=== PATIENT | female | born 1990 | race Caucasian/White ===

== ENCOUNTER 2016-04-11 06:18 | Emergency (ER) | payer OTHER ==
[~2016-04-11] VITALS: Ht 157.5 cm; Wt 91.7 kg
[~2016-04-11 06:18] MED LIST: DPPI150 IM; LORA10TA6 PO
[2016-04-11 06:25] VITALS: TEMP 37.1; Ht 157.5 cm; Wt 91.7 kg
[2016-04-11] MEDS ORDERED: ONDANSETRON INJ 2 MG/ML 2 ML VIAL IV STA (06:50)
[2016-04-11] MEDS ORDERED: SODIUM CHLORIDE 0.9% 1000ML 2,000 ML IV STA (06:50)
[2016-04-11 07:30] LABS: BASO % 0.1 %; BASO ABS # 0.01 K/uL (0-0.2); COMPLETE YES; EOS % 0.3 %; HEMATOCRIT 40.5 % (37-47); IG% 0.3 %; LYMPH % 5.8 %; LYMPH ABS # 0.46 K/uL (1.2-3.4); MEAN CELL VOLUME 82.2 fL (80-100); MEAN CORPUSCULAR HEMOGLOBIN 29.2 pg (25-34); MEAN CORPUSCULAR HGB CONC 35.6 g/dl (32-36); MEAN PLATELET VOLUME 9.5 fL (7.4-10.4); MONO % 1.8 %; NEUT % 91.7 %; PLATELET COUNT 224 K/uL (130-400); RED BLOOD COUNT 4.93 M/uL (4.2-5.4); WHITE BLOOD COUNT 7.95 K/uL (4.8-10.8)
[2016-04-11 07:49] LABS: CALCIUM 8.5 mg/dl (8.5-10.1); CREATININE 0.76 mg/dl (0.60-1.20); POTASSIUM 3.9 mmol/L (3.5-5.1)
[2016-04-11] MEDS ORDERED: ONDA4TAB10 SL (08:02)
--- NOTE | 2016-04-11 08:03 | EMERGENCY ROOM VISIT NOTE ---
History Report prepared by Devan: Katherin Barrera Under the Supervision of: Dr. Florentino Fan D.O. First contact with patient: 06:48 Chief Complaint: VOMITING Stated Complaint: THROWING UP,NAUSEA,CAN'T KEEP ANYTHING DOWN Nursing Triage Summary: c/o n/v during the night . History of Present Illness The patient is a 25 year old female who presents to the Emergency Room with complaints of multiple episodes of vomiting since last evening. Currently, the she is feeling nauseous, and she rates her discomfort as a 7/10. Since the time of onset, the patient has vomited approximately 10 times, and she has not been able to keep any food or liquids down without bringing them back up. She has also passed 3 movements of watery diarrhea. She now notes generalized cramping abdominal pain which she attributes to vomiting. The patient denies feeling ill prior to the time of onset last evening, and she denies fevers, chills, headache , chest pain, shortness of breath, cough, hematochezia, melena, urinary symptoms or swelling to her legs. Patient does note that she has been around her mother who is ill with similar symptoms. Source of History: patient Onset: last evening Position: abdomen Symptom Intensity: 7/10 Quality: other (vomiting) Modifying Factors (Worsening): eating, drinking Associated Symptoms: + abdominal pain, + diarrhea, + nausea, + vomiting, No SOB, No chest pain, No chills, No fevers, No hematochezia, No melena, No urinary symptoms Review of Systems See HPI for pertinent positives & negatives. A total of 10 systems reviewed and were otherwise negative. Past Medical & Surgical Medical Problems: (1) ADHD (attention deficit hyperactivity disorder) (2) Anxiety (3) Tachycardia (4) Tachycardia Family History No pertinent family history Social History Smoking Status: Never Smoker Alcohol Use: none Drug Use: none Housing Status: other Occupation Status: unemployed Current/Historical Medications Scheduled Loratadine (Claritin), 10 MG PO DAILY Medroxyprogesterone Acetate (Medroxyprogesterone Aceta), 150 MG IM UD Ondasetron Odt (Zofran Odt), 4 MG SL Q6H Allergies Coded Allergies: No Known Allergies (Unverified , 04/11/16) Physical Exam Vital Signs Date Time Temp Pulse Resp B/P Pulse Ox O2 Delivery O2 Flow Rate FiO2 04/11/16 06:25 37.1 104 18 107/62 99 Room Air Physical Exam CONSTITUTIONAL/VITAL SIGNS: Reviewed / noted above. GENERAL: Non-toxic in appearance. INTEGUMENTARY: Warm, dry, and [place]. HEAD: Normocephalic. EYES: without scleral icterus or trauma. ENT/OROPHARYNX: clear and moist. LYMPHADENOPATHY/NECK: Is supple without lymphadenopathy or meningismus. RESPIRATORY: Lungs clear and equal. CARDIOVASCULAR: Regular rate and rhythm. GI/ABDOMEN: Soft and nontender. No organomegaly or pulsatile mass. No rebound or guarding. Normal bowel sounds. EXTREMITIES: Warm and well perfused. BACK: No CVA tenderness. NEUROLOGICAL: Intact without focal deficits. PSYCHIATRIC: normal affect. MUSCULOSKELETAL: Normally developed with good muscle tone. Medical Decision & Procedures Laboratory Results 04/11/16 07:10 Red Blood Count 4.93, Mean Corpuscular Volume 82.2, Mean Corpuscular Hemoglobin 29.2, Mean Corpuscular Hemoglobin Concent 35.6, Mean Platelet Volume 9.5, Neutrophils (%) (Auto) 91.7, Lymphocytes (%) (Auto) 5.8, Monocytes (%) (Auto) 1.8, Eosinophils (%) (Auto) 0.3, Basophils (%) (Auto) 0.1, Neutrophils # (Auto) 7.30, Lymphocytes # (Auto) 0.46, Monocytes # (Auto) 0.14, Eosinophils # (Auto) 0.02, Basophils # (Auto) 0.01 04/11/16 07:10 Test 04/11/16 07:10 White Blood Count 7.95 K/uL (4.8-10.8) Red Blood Count 4.93 M/uL (4.2-5.4) Hemoglobin 14.4 g/dL (12.0-16.0) Hematocrit 40.5 % (37-47) Mean Corpuscular Volume 82.2 fL (80-100) Mean Corpuscular Hemoglobin 29.2 pg (25-34) Mean Corpuscular Hemoglobin Concent 35.6 g/dl (32-36) Platelet Count 224 K/uL (130-400) Mean Platelet Volume 9.5 fL (7.4-10.4) Neutrophils (%) (Auto) 91.7 % Lymphocytes (%) (Auto) 5.8 % Monocytes (%) (Auto) 1.8 % Eosinophils (%) (Auto) 0.3 % Basophils (%) (Auto) 0.1 % Neutrophils # (Auto) 7.30 K/uL (1.4-6.5) Lymphocytes # (Auto) 0.46 K/uL (1.2-3.4) Monocytes # (Auto) 0.14 K/uL (0.11-0.59) Eosinophils # (Auto) 0.02 K/uL (0-0.5) Basophils # (Auto) 0.01 K/uL (0-0.2) RDW Standard Deviation 38.3 fL (36.4-46.3) RDW Coefficient of Variation 12.7 % (11.5-14.5) Immature Granulocyte % (Auto) 0.3 % Immature Granulocyte # (Auto) 0.02 K/uL (0.00-0.02) Anion Gap 9.0 mmol/L (3-11) Est Creatinine Clear Calc Drug Dose 120.3 ml/min Estimated GFR () 127.2 Estimated GFR (Non- 109.8 BUN/Creatinine Ratio 17.0 (10-20) Calcium Level 8.5 mg/dl (8.5-10.1) Total Bilirubin 0.9 mg/dl (0.2-1) Direct Bilirubin 0.2 mg/dl (0-0.2) Aspartate Amino Transf (AST/SGOT) 13 U/L (15-37) Alanine Aminotransferase (ALT/SGPT) 21 U/L (12-78) Alkaline Phosphatase 69 U/L (45-117) Total Protein 7.5 gm/dl (6.4-8.2) Albumin 4.0 gm/dl (3.4-5.0) Lipase 163 U/L (73-393) Laboratory results as stated above per my review. Medications Administered Medications (Trade) Dose Ordered Sig/Sofya Route Start Time Stop Time Status Last Admin Dose Admin Sodium Chloride (Nss 1000ml) 2,000 ml @ 999 mls/hr Q2H1M STAT IV 04/11/16 06:50 04/11/16 08:50 04/11/16 07:21 999 MLS/HR Ondansetron HCl (Zofran Inj) 4 mg NOW STAT IV 04/11/16 06:50 04/11/16 06:51 DC 1/3/17 07:21 4 MG ED Course 0647: Previous medical records were reviewed. The patient was evaluated in room B3. A complete history and physical examination was performed. 0650: Zofran 4 mg IV and NSS 2,000 ml @ 999 mls/hr IV were ordered. 0810: Upon reevaluation, the patient was doing well and appeared to be resting more comfortably. I updated her on the results of her lab tests. Discharge instructions were also discussed. She verbalized her understanding and agreement with the treatment plan, and she is now ready for disposition. Medical Decision Differential diagnosis: Etiologies such as gastroenteritis, food borne illness, infections, appendicitis , diverticulitis, inflammatory bowel disease, obstruction, GI bleed, biliary pathology, as well as others were entertained. This is a 25-year-old female who presents to the ED with chief complaint of nausea, vomiting and diarrhea. The patient states that her symptoms started last night. She has had about 10 episodes of vomiting and 3 episodes of diarrhea. She came in here with her mother this morning as they both have the same symptoms. Her vital signs are stable. Her physical exam did not reveal any abdominal tenderness or other acute symptoms. CBC, complete metabolic panel and lipase were normal. The patient was treated with IV fluids. She was given IV Zofran. She is felt to be stable for discharge and outpatient follow- up. Prescription for Zofran. Impression Primary Impression: Nausea, vomiting, and diarrhea Scribe Attestation The scribe's documentation has been prepared under my direction and personally reviewed by me in its entirety. I confirm that the note above accurately reflects all work, treatment, procedures, and medical decision making performed by me. Departure Information Dispostion Home / Self-Care Prescriptions Ondasetron Odt (ZOFRAN ODT) 4 Mg Tab 4 MG SL Q6H for Nausea, #10 TAB Prov: Florentino Fan D.O. 04/11/16 Referrals No Doctor, Assigned (PCP) Forms HOME CARE DOCUMENTATION FORM, IMPORTANT VISIT INFORMATION Patient Instructions A Signature Page, ED Nausea Vomiting, My [facility] Additional Instructions Zofran: Allow one tablet to dissolve under the tongue every 6 hours as needed for nausea or vomiting. Follow-up with your doctor for further care and evaluation in 5 days if symptoms persist. Return to the emergency department for worsening or new symptoms or any concerns. You have been examined and treated today on an emergency basis only. This is not a substitute for, or an effort to provide, complete comprehensive medical care. It is impossible to recognize and treat all injuries or illnesses in a single emergency department visit. It is therefore important that you follow up closely with your doctor. Call as soon as possible for an appointment.
[2016-04-11 08:20] VITALS: BP 108/74; PULSE 86; O2SAT 98
== END 2016-04-11 08:20 | disposition home or self-care (01) ==
LOC: C.EDB 06:19
DX: R11.2 Nausea with vomiting, unspecified (principal); R19.7 Diarrhea, unspecified; F90.9 Attention-deficit hyperactivity disorder, unspecified type

== ENCOUNTER → 2016-11-10 | Outpatient (CLI) | payer OTHER ==
[~2016-11-10] MED LIST changes: +LORA10TA5 PO; -LORA10TA6 PO
== END | disposition home or self-care (01) ==
LOC: C.LABPVFM 10:37
PROVIDERS: ATTEND Obstetrics & Gynecology
DX: Z34.90 Encounter for supervision of normal pregnancy, unspecified, unspecified trimester (principal)

== ENCOUNTER → 2016-11-27 | Outpatient (CLI) | payer OTHER ==
[2016-11-27 16:18] LABS: MANUAL MICROSCOPIC REQUIRED? NO; REVIEW REQ? NO; URINE APPEARANCE CLEAR (CLEAR); URINE BILIRUBIN NEG (NEG); URINE COLOR YELLOW; URINE EPITHELIAL CELL AUTO >30 /lpf (0-5); URINE NITRITE NEG (NEG); URINE SPECIFIC GRAVITY 1.012 (1.000-1.030); UROBILINOGEN NEG (NEG)
== END | disposition home or self-care (01) ==
LOC: C.LABSPEC 15:42
PROVIDERS: ATTEND Obstetrics & Gynecology
DX: Z34.81 Encounter for supervision of other normal pregnancy, first trimester (principal)

== ENCOUNTER → 2016-11-30 | Outpatient (CLI) | payer OTHER | END | disposition home or self-care (01) | LOC: C.PAPS 16:38 | PROVIDERS: ATTEND Obstetrics & Gynecology | DX: Z12.4 Encounter for screening for malignant neoplasm of cervix (principal) ==

== ENCOUNTER → 2016-11-30 | Outpatient (CLI) | payer OTHER ==
[2016-12-04 07:44] LABS: CHLAMYDIA TRACH RNA*** NOT DETECTED (NOT DETECTED); GC (NEIS GONORRHOEAE)RNA** NOT DETECTED (NOT DETECTED)
== END | disposition home or self-care (01) ==
LOC: C.LABSPEC 16:07
PROVIDERS: ATTEND Obstetrics & Gynecology
DX: Z34.81 Encounter for supervision of other normal pregnancy, first trimester (principal)

== ENCOUNTER → 2016-11-30 | Outpatient (CLI) | payer OTHER ==
[2016-11-30 13:20] LABS: BASO % 0.1 %; BASO ABS # 0.01 K/uL (0-0.2); COMPLETE YES; EOS % 2.5 %; HEMATOCRIT 38.9 % (37-47); IG% 0.1 %; MEAN CORPUSCULAR HEMOGLOBIN 29.6 pg (25-34); MEAN CORPUSCULAR HGB CONC 35.2 g/dl (32-36); MEAN PLATELET VOLUME 9.3 fL (7.4-10.4); MONO % 5.8 %; NEUT % 70.5 %; PLATELET COUNT 313 K/uL (130-400); RED BLOOD COUNT 4.63 M/uL (4.2-5.4); WHITE BLOOD COUNT 7.62 K/uL (4.8-10.8)
== END | disposition home or self-care (01) ==
LOC: C.LAB1850 12:34
PROVIDERS: ATTEND Obstetrics & Gynecology
DX: Z34.81 Encounter for supervision of other normal pregnancy, first trimester (principal)

== ENCOUNTER → 2017-01-05 | Outpatient (CLI) | payer OTHER ==
[2017-01-05 13:42] LABS: GTGD 50 Grams
== END | disposition home or self-care (01) ==
LOC: C.LAB1850 11:16
PROVIDERS: ATTEND Obstetrics & Gynecology
DX: Z34.81 Encounter for supervision of other normal pregnancy, first trimester (principal)

== ENCOUNTER 2017-03-17 13:59 | Outpatient (CLI) | payer OTHER ==
[~2017-03-17 13:59] MED LIST changes: -LORA10TA5 PO; +LORA10TA6 PO
[2017-03-17 15:02] LABS: MANUAL MICROSCOPIC REQUIRED? NO; REVIEW REQ? NO; URINE APPEARANCE CLOUDY (CLEAR); URINE COLOR DK YELLOW; URINE EPITHELIAL CELL AUTO >30 /lpf (0-5); URINE NITRITE NEG (NEG); URINE PH 6.5 (4.5-7.5); URINE SPECIFIC GRAVITY 1.029 (1.000-1.030); UROBILINOGEN NEG (NEG); ZZUR CULT IF INDIC CLEAN CATCH NO
[2017-03-17 15:03] LABS: URINE BILIRUBIN NEG (NEG)
== END 2017-03-17 15:15 | disposition home or self-care (01) ==
LOC: C.OPB 13:59 → C.LD 14:00 → C.OPB 15:15
PROVIDERS: ATTEND Obstetrics & Gynecology
DX: O99.89 Other specified diseases and conditions complicating pregnancy, childbirth and the puerperium (principal); N89.8 Other specified noninflammatory disorders of vagina; Z3A.24 24 weeks gestation of pregnancy

== ENCOUNTER → 2017-04-05 | Outpatient (CLI) | payer OTHER ==
[2017-04-05 13:35] LABS: URINE APPEARANCE CLOUDY (CLEAR); URINE COLOR DK YELLOW; URINE EPITHELIAL CELL AUTO >30 /lpf (0-5); URINE NITRITE NEG (NEG); URINE SPECIFIC GRAVITY 1.027 (1.000-1.030); UROBILINOGEN NEG (NEG)
[2017-04-05 13:41] LABS: MANUAL MICROSCOPIC REQUIRED? NO; REVIEW REQ? YES
[2017-04-05 13:43] LABS: URINE BILIRUBIN NEG (NEG)
[2017-04-05 13:50] LABS: URINE MUCUS PRESENT (NONE PRSENT)
== END | disposition home or self-care (01) ==
LOC: C.LABSPEC 13:07
PROVIDERS: ATTEND Obstetrics & Gynecology
DX: Z34.83 Encounter for supervision of other normal pregnancy, third trimester (principal)

== ENCOUNTER 2017-05-03 14:57 | Outpatient (CLI) | payer OTHER ==
[~2017-05-03] VITALS: Ht 162.6 cm; Wt 214.0 kg
[~2017-05-03 14:57] MED LIST changes: -PRENTAB26 PO
[2017-05-03] MEDS ORDERED: LACTATED RINGER'S 1000ML 1,000 ML IV SCH (15:10)
[2017-05-03] MEDS ORDERED: LACTATED RINGER'S 1000ML 500 ML IV ONE (15:10)
[2017-05-03] MEDS ORDERED: BETAMETH SOD PHOS/ACETATE IA 6 MG/ML IM ONE (15:15)
[2017-05-03] MEDS ORDERED: NIFEdipine 10 MG CAP PO STA (15:23)
[2017-05-03 16:58] VITALS: Ht 162.6 cm; Wt 214.0 kg
[2017-05-03] MEDS ORDERED: PRENTAB26 PO (17:01)
== END 2017-05-03 16:38 | disposition short-term general hospital (02) ==
LOC: C.OPB 14:57 → C.LD 14:57 → C.OPB 16:38 → EDSTATUS 06-24 15:02
PROVIDERS: ATTEND Obstetrics & Gynecology
DX: O60.03 Preterm labor without delivery, third trimester (principal); Z3A.00 Weeks of gestation of pregnancy not specified

== ENCOUNTER → 2017-05-03 | Outpatient (CLI) | payer OTHER ==
[~2017-05-03] MED LIST changes: +PRENTAB26 PO
== END | disposition home or self-care (01) ==
LOC: C.LABSPEC 15:45
PROVIDERS: ATTEND Obstetrics & Gynecology
DX: N39.0 Urinary tract infection, site not specified (principal)

== ENCOUNTER → 2017-05-18 | Outpatient (CLI) | payer OTHER ==
[~2017-05-18] MED LIST changes: -DPPI150 IM; -LORA10TA6 PO; +PRENTAB26 PO
[2017-05-18 15:19] LABS: HEMATOCRIT 36.2 % (37-47); HEMOGLOBIN 12.9 g/dL (12.0-16.0)
== END | disposition home or self-care (01) ==
LOC: C.LAB1850 14:03
PROVIDERS: ATTEND Obstetrics & Gynecology
DX: Z34.83 Encounter for supervision of other normal pregnancy, third trimester (principal)

== ENCOUNTER 2017-06-03 20:02 | Outpatient (CLI) | payer OTHER ==
[~2017-06-03] VITALS: Ht 162.6 cm; Wt 98.6 kg
[2017-06-03 20:52] VITALS: Ht 162.6 cm; Wt 98.6 kg
== END 2017-06-03 20:55 | disposition home or self-care (01) ==
LOC: C.OPB 20:02 → C.LD 20:02 → C.OPB 20:55
PROVIDERS: ATTEND Obstetrics & Gynecology
DX: O62.9 Abnormality of forces of labor, unspecified (principal); Z3A.00 Weeks of gestation of pregnancy not specified

== ENCOUNTER 2017-06-07 23:33 | Outpatient (CLI) | payer OTHER ==
[~2017-06-07] VITALS: Ht 162.6 cm; Wt 99.1 kg
[2017-06-07 23:47] VITALS: Ht 162.6 cm; Wt 99.1 kg
== END 2017-06-08 00:57 | disposition home or self-care (01) ==
LOC: C.LD 23:33 → C.OPB 23:33
PROVIDERS: ATTEND Obstetrics & Gynecology
DX: O26.893 Other specified pregnancy related conditions, third trimester (principal); O62.9 Abnormality of forces of labor, unspecified; Z3A.37 37 weeks gestation of pregnancy

== ENCOUNTER 2017-06-10 20:31 | Outpatient (CLI) | payer OTHER ==
[~2017-06-10] VITALS: Ht 162.6 cm; Wt 96.0 kg
[2017-06-10 22:46] VITALS: Ht 162.6 cm; Wt 96.0 kg
== END 2017-06-10 23:20 | disposition home or self-care (01) ==
LOC: C.OPB 20:31 → C.LD 20:31 → C.OPB 23:20
PROVIDERS: ATTEND Obstetrics & Gynecology
DX: O62.9 Abnormality of forces of labor, unspecified (principal); Z3A.00 Weeks of gestation of pregnancy not specified

== ENCOUNTER 2017-06-11 03:16 | Inpatient (IN) | payer OTHER ==
[~2017-06-11] VITALS: Ht 160 cm; Wt 99.0 kg
[2017-06-11] MEDS ORDERED: LACTATED RINGER'S 1000ML 1,000 ML IV PRN (03:51)
[2017-06-11] MEDS ORDERED: LACTATED RINGER'S 1000ML 1,000 ML IV SCH (03:51)
[2017-06-11] MEDS ORDERED: PENICILLIN G POTASSIUM IV 6 MU in DEXTROSE 5% 250ML 250 ML IV ONE (04:00)
[2017-06-11] MEDS ORDERED: PENICILLIN G POTASSIUM IV 3 MU in DEXTROSE 5% 100ML 100 ML IV PRN (04:00)
[2017-06-11] MEDS ORDERED: EpHEDrine SULFATE INJ 50 MG/ML AMP ONE (04:07)
[2017-06-11] MEDS ORDERED: BUPIVACAINE 0.25% 30 ML VIAL ONE (04:07)
[2017-06-11] MEDS ORDERED: FENTANYL CITRATE INJ 50 MCG/1 ML 2 ML VIAL ONE (04:08)
[2017-06-11] MEDS ORDERED: FENTANYL 2MCG/ML ROPIV 1.25MG/ML 100ML BAG EPI ONE (04:08)
[2017-06-11 04:26] LABS: HEMATOCRIT 33.8 % (37-47); MEAN CELL VOLUME 84.5 fL (80-100); MEAN CORPUSCULAR HGB CONC 35.5 g/dl (32-36); MEAN PLATELET VOLUME 9.3 fL (7.4-10.4); PLATELET COUNT 222 K/uL (130-400); RED CELL DISTRIBUTION WIDTH SD 39.8 fL (36.4-46.3); WHITE BLOOD COUNT 12.58 K/uL (4.8-10.8)
[2017-06-11] MEDS ORDERED: NALOXONE HCL INJ 1 MG in SODIUM CHLORIDE 0.9% 1000ML 1,000 ML IV PRN ×4 (05:16)
[2017-06-11] MEDS ORDERED: LACTATED RINGER'S 1000ML 500 ML IV PRN (05:16)
[2017-06-11] MEDS ORDERED: EpHEDrine SULFATE INJ 50 MG/ML AMP IV PRN (05:30)
[2017-06-11] MEDS ORDERED: NALOXONE HCL INJ 0.4 MG/1 ML VIAL/CARP IV PRN (05:30)
[2017-06-11] MEDS ORDERED: ONDANSETRON INJ 2 MG/ML 2 ML VIAL IV PRN (05:30)
[2017-06-11] MEDS ORDERED: FENTANYL 2MCG/ML ROPIV 1.25MG/ML 100ML BAG EPI PRN (05:30)
[2017-06-11] MEDS ORDERED: DiphenhydrAMINE HCL 50 MG/ML VIAL IV PRN (05:30)
[2017-06-11] MEDS ORDERED: NALBUPHINE HCL INJ 10 MG/ML AMP IV PRN (05:30)
[2017-06-11] MEDS ORDERED: PROMETHAZINE HCL INJ 25 MG in SODIUM CHLORIDE 0.9% 50ML 50 ML IV PRN (05:30)
[2017-06-11 05:41] VITALS: Ht 160 cm; Wt 99.0 kg
[2017-06-11] MEDS ORDERED: OXYTOCIN 30 UNITS/500ML NSS IV ONE (08:27)
[2017-06-11] MEDS ORDERED: OXYTOCIN 30 UNITS/500ML NSS IV PRN (08:45)
[2017-06-11] MEDS ORDERED: LANOLIN OINT EXT PRN (08:45)
[2017-06-11] MEDS ORDERED: IBUPROFEN 600 MG TAB PO PRN (08:45)
[2017-06-11] MEDS ORDERED: BENZOCAINE 20% AER SPR 82.5 GM CAN EXT PRN (08:45)
[2017-06-11] MEDS ORDERED: HYDROCORTISONE ACETATE 25 MG SUPP PR PRN (08:45)
[2017-06-11] MEDS ORDERED: SUPERCREAM 0.870 % 15GM JAR EXT PRN (08:45)
[2017-06-11] MEDS ORDERED: OXYCODONE/ACETAMINOPHEN 5-325 TAB PO PRN (08:45)
[2017-06-11] MEDS ORDERED: DIPHTHERIA/TETANUS/PERTUSSIS 0.5 ML SYR/VIAL IM. ONE (08:45)
[2017-06-11] MEDS ORDERED: ACETAMINOPHEN/CODEINE 300/30MG TAB PO PRN ×2 (08:45)
[2017-06-11] MEDS ORDERED: ACETAMINOPHEN 325 MG TAB PO PRN (08:45)
--- NOTE | 2017-06-11 09:11 | Anesthesia Procedure Note ---
Anesthesia Epidural Removal Nt Date & Time Jun 11, 2017 at 09:11 Vital Signs Pain Intensity: 0.0 Notes Mental Status: alert / awake / arousable, participated in evaluation Nausea / Vomiting: adequately controlled Pain: adequately controlled Airway Patency, RR, SpO2: stable & adequate BP & HR: stable & adequate Hydration State: stable & adequate Neuraxial Anesthesia: was administered Anesthetic Complications: no major complications apparent, pt satisfied with anesthetic care Epidural: removed without complications, with tip intact
--- NOTE | 2017-06-11 09:41 | DELIVERY SUMMARY ---
DATE OF OPERATION: 06/11/2017 Marga arrived in labor and delivery with ruptured membranes 4-5 cm, requested epidural. She was group B strep positive and received penicillin. She eventually progressed to fully dilated and delivered over a total of 1 contraction, delivering a baby in left occiput anterior position. Mouth and then nares suctioned. Fluid was clear. No nuchal cord. Baby was delivered with gentle traction. No excessive force used. Live vigorous . Cord clamped and cut. Cord gases obtained. Cord blood obtained. Placenta removed by gentle traction. IV Pitocin started. Small first-degree tear repaired with 3-0 Vicryl. Sponge and instrument counts correct. Estimated blood loss 300 mL. I attest to the content of the Intraoperative Record and any orders documented therein. Any exception s are noted below.
[2017-06-11 11:30] VITALS: BP 122/83; PULSE 82; TEMP 36.6
[2017-06-11 15:11] VITALS: BP 116/76; PULSE 80; TEMP 36.8
[2017-06-11] MEDS: DOCUSATE SODIUM 100 MG CAP PO SCH (19:49)
[2017-06-11 19:55] VITALS: BP 131/76; PULSE 94; TEMP 37
--- NOTE | 2017-06-11 20:31 | Discharge Instructions ---
Discharge Instructions Date of Service Jun 11, 2017. Admission Reason for Admission: Normal Labor Discharge Discharge Diagnosis / Problem: s/p Discharge Goals Goal(s): Routine recovery after delivery Medications Continue Dispensed Medications: supercream, dermaplast, tucks, lansinoh Activity Recommendations Activity Limitations: per Instructions/Follow-up section . Instructions / Follow-Up Instructions / Follow-Up ACTIVITY RECOMMENDATIONS: * Gradual return to full activity over the next 2-3 weeks. * No lifting - nothing heavier than baby over the next 2-3 weeks. * Do not engage in vigorous exercise, sexual activity or sports until cleared by your physician. * Do not drive or operate any motorized equipment until cleared by your physician. * You may shower/bathe daily. MEDICATIONS: For discomfort or pain, you may use Acetaminophen (Tylenol), Ibuprofen (Advil), or Naproxen (Aleve) following the package directions. For constipation you may use Colace following the package directions. BREAST CARE: If you are not breast feeding: * Wear a supportive bra 24 hours a day for one to two weeks. * Avoid stimulating your breasts and nipples as much as possible during the first few weeks after delivery. * When taking a shower, have the warm water hit your back, not breasts. * When your breasts feel full, apply ice packs. Usually three to four times a day helps ease the discomfort. * Take a mild pain medication (Tylenol / Motrin) when you are uncomfortable. If breast feeding: * Use breast milk to lubricate nipples. Lansinoh cream may be used for sore nipples. You do not need to remove cream prior to breast feeding. If using a different brand of cream, check the label for directions regarding removal of cream prior to nursing. * Wear a supportive bra. * If having problems with breasts or breast feeding, call a senior clinical consultant or your health care provider. EPISIOTOMY CARE: After delivery, if you have an episiotomy (stitches), the following steps will ease discomfort and aid healing. * For the first 24 hours after delivery, place ice packs next to your episiotomy to help reduce swelling. * After the first 24 hour-period, sitz baths, either portable or in the tub, are suggested. A shower with a shower arm sprayed over the episiotomy may be comforting. * Page care should be done after each voiding and bowel movement. Squirt warm water from a plastic bottle over the perineum (region of the body between the anus and urinary opening) and pat dry. * Use Dermoplast to ease discomfort. Shake container. [place] directly over the episiotomy. Place a Tucks on a clean sanitary pad next to your episiotomy. SPECIAL CARE INSTRUCTIONS: When you are discharged from the hospital, it is important for you to follow the instructions listed below: * During the first week at home, you should be able to care for yourself and your baby. In addition, the usual light household activities are encouraged. * Limit your activities to the way you feel. Do not try to clean the house or move furniture. Be sensible. * If you actively engage in sports and have done so up until the time of your delivery, you may resume these activities as soon as you feel able. This may take up to one month or even longer. Use good judgment. * Continue to take your vitamins for at least six weeks after the of your baby. * Your diet need not be limited unless you were on a special diet before your delivery. Breast-feeding mothers need around 2500 calories per day and at least 64-80 ounces of fluid per day (8 to 10 glasses). * You should eat foods from the four major food groups. Crash diets or fad diets are to be avoided. Eating lean meats, fresh fruits and vegetables, low-fat dairy products, high fiber foods and a regular exercise program, will help you get back to your pre- weight without putting your health at risk. * Constipation is sometimes a problem after delivery. Take a mild laxative as needed. If breast feeding, Milk of Magnesia is acceptable to use. You may use a suppository or Fleets enema if no episiotomy. * A daily shower or tub bath is suggested. Be sure to thoroughly and gently dry the perineum. * A bloody vaginal discharge will usually continue until around four weeks post . A small amount of bleeding may continue for as long as six weeks. Vaginal discharge changes from the bright red bleeding after delivery to pink then brownish and finally yellowish-pink before becoming white and disappearing. * Bleeding may increase with activity. Your first period may come in 4-8 weeks. If you are breast feeding, your period may be delayed even longer. * [place] (sex) can begin whenever both you and your partner feel comfortable and do not have any form of genital infection. It is recommended that you wait at least six weeks for internal and external healing to occur. If you have questions, please talk to your health care practitioner. A condom should be used to prevent infection and . * Foreplay, gentle intercourse and lubrication is very important the first several times to prevent pain. A water-based lubricant such as K-Y jelly or Astroglide may be used. * If you have RH negative blood and your baby is RH positive, you will receive RHOGAM by injection prior to discharge. The nurse will give you a card to keep with you that has the date and place that you received RHOGAM after delivery. * During your care, you had a Rubella screen done to check for the presence of rubella antibodies in your blood. If your test was negative, you will receive a Rubella vaccine prior to discharge. This vaccine may cause a fever, soreness at the injection site and flu-like symptoms. If these symptoms persist, notify your health care practitioner. is not advised for one month after a Rubella vaccine. * Verbalizes understanding of car seat law as reviewed with patient nursing. * Car Seat hand-out given and reviewed with patient by nursing. * Shaken baby information reviewed with patient by nursing. Call you doctor if: * Heavy bleeding (saturating several pads an hour) or passing clots the size of your fist. * A fever >101 degrees F (38.3 degrees C) on two occasions four hours apart and /or chills. * Unusual pain in the pelvic or vaginal areas. * "Baby Blues" lasting longer than two weeks. If you have any questions or concerns, call your health care practitioner at . FOLLOW UP VISIT: * Please call the office at to schedule a 6 week examination. It is important you keep this appointment. It is important for you to make arrangements for either yearly or twice yearly check-ups thereafter. Current Hospital Diet Patient's current hospital diet: Regular OB Diet Discharge Diet Recommended Diet: Regular OB Diet Pending Studies Studies pending at discharge: no Medical Emergencies . Who to Call and When: Medical Emergencies: If at any time you feel your situation is an emergency, please call 911 immediately. . Non-Emergent Contact Non-Emergency issues call your: [employer] . . "Provider Documentation" section prepared by Marcia Rodriguez. .
[2017-06-12] VITALS: BP 108/65; PULSE 87; TEMP 36.4; O2SAT 96
[2017-06-12 03:25] VITALS: BP 107/68; PULSE 84; TEMP 36.6; O2SAT 94
[2017-06-12 07:20] LABS: HEMATOCRIT 29.3 % (37-47); HEMOGLOBIN 10.7 g/dL (12.0-16.0)
--- NOTE | 2017-06-12 07:34 | Progress Note ---
Subjective Jun 12, 2017. Subjective conversation w/ patient, physical exam, lab review Ambulation: ambulating normally Voiding: no voiding problems Passing Gas: Yes Diet Tolerance: Regular Diet Lochia: Small Feeding Type: Breast Feeding Pain: controlled Objective Vital Signs Date Time Temp Pulse Resp B/P (MAP) Pulse Ox O2 Delivery O2 Flow Rate FiO2 06/12/17 03:25 36.6 84 16 107/68 (81) 94 Room Air 06/12/17 00:00 36.4 87 18 108/65 (79) 96 Room Air 06/12/17 00:00 96 Room Air 06/11/17 19:55 37.0 94 18 131/76 (94) Room Air 06/11/17 15:15 Room Air 06/11/17 15:11 36.8 80 16 116/76 (89) Room Air 06/11/17 11:30 36.6 82 20 122/83 (96) Room Air 06/11/17 11:30 Room Air Physical Exam General Appearance: WELL-APPEARING, WD/WN, NO APPARENT DISTRESS Abdomen: non tender, soft Fundus: Firm, Non-Tender, Relation to Umbilicus (at u) Extremities: non-tender, normal inspection, no calf tenderness Laboratory Results Last 24 Hours Test 06/12/17 06:50 Hemoglobin 10.7 g/dL Hematocrit 29.3 % Assessment and Plan Problem List Medical Problems: (1) Ankle pain Status: Acute (2) Conjunctivitis Status: Acute (3) Fall Status: Acute (4) Lumbar contusion Status: Acute (5) Nausea, vomiting, and diarrhea Status: Acute (6) SOB (shortness of breath) Status: Acute (7) Tachycardia Status: Acute Post- Day#: 1 Continue Routine Care: Patient doing well. Routine care. Probable d/c tomorrow.
[2017-06-12 08:00] VITALS: BP 107/75; PULSE 77; TEMP 36.8
[2017-06-12] MEDS: PRENATAL VITAMIN TAB PO SCH (08:09)
[2017-06-12] MEDS: DOCUSATE SODIUM 100 MG CAP PO SCH ×2 (08:09→19:57)
[2017-06-12 15:30] VITALS: BP 116/75; PULSE 82; TEMP 36.7
[2017-06-12] MEDS ORDERED: BISACODYL 5 MG TABEC PO SCH (20:00)
[2017-06-12 23:50] VITALS: BP 118/80; PULSE 89; TEMP 37.5; O2SAT 97
[2017-06-13 06:29] LABS: HEMATOCRIT 31.7 % (37-47); HEMOGLOBIN 11.3 g/dL (12.0-16.0); MEAN CELL VOLUME 84.5 fL (80-100); MEAN CORPUSCULAR HEMOGLOBIN 30.1 pg (25-34); MEAN CORPUSCULAR HGB CONC 35.6 g/dl (32-36); MEAN PLATELET VOLUME 9.4 fL (7.4-10.4); PLATELET COUNT 236 K/uL (130-400); RED CELL DISTRIBUTION WIDTH CV 13.3 % (11.5-14.5); RED CELL DISTRIBUTION WIDTH SD 40.7 fL (36.4-46.3); WHITE BLOOD COUNT 10.24 K/uL (4.8-10.8)
[2017-06-13] MEDS ORDERED: BISACODYL 10 MG SUPP PR PRN (07:00)
[2017-06-13 08:00] VITALS: BP 113/83; PULSE 73; TEMP 36.9
--- NOTE | 2017-06-13 08:02 | Progress Note ---
Subjective Jun 13, 2017. Subjective conversation w/ patient, physical exam Ambulation: ambulating normally Voiding: no voiding problems Passing Gas: Yes Diet Tolerance: Regular Diet Lochia: Small Feeding Type: Breast Feeding Pain: minimal, 2/10 Comment: pt seen and examined at bedside, no acute events overnight Review of Systems Constitutional: No fever, No chills Respiratory: No cough, No shortness of breath Cardiac: No chest pain Abdomen: No pain, No nausea, No vomiting Female : No dysuria no JOSE or calf tenderness reported Objective Vital Signs Date Time Temp Pulse Resp B/P (MAP) Pulse Ox O2 Delivery O2 Flow Rate FiO2 06/12/17 23:50 37.5 89 18 118/80 (93) 97 Room Air 06/12/17 23:50 97 Room Air 06/12/17 15:30 Room Air 06/12/17 15:30 36.7 82 18 116/75 (89) Room Air 06/12/17 08:00 36.8 77 18 107/75 (86) Room Air 06/12/17 08:00 Room Air Physical Exam General Appearance: WELL-APPEARING, NO APPARENT DISTRESS Respiratory/Chest: lungs clear, normal breath sounds Cardiovascular: regular rate, rhythm, no murmur Abdomen: normal bowel sounds, non tender, soft Fundus: Firm, Non-Tender, Relation to Umbilicus (3 cm below) Extremities: normal range of motion, normal inspection, no calf tenderness, + pedal edema (1+ bilat) Laboratory Results Last 24 Hours Test 06/13/17 06:09 White Blood Count 10.24 K/uL Red Blood Count 3.75 M/uL Hemoglobin 11.3 g/dL Hematocrit 31.7 % Mean Corpuscular Volume 84.5 fL Mean Corpuscular Hemoglobin 30.1 pg Mean Corpuscular Hemoglobin Concent 35.6 g/dl RDW Standard Deviation 40.7 fL RDW Coefficient of Variation 13.3 % Platelet Count 236 K/uL Mean Platelet Volume 9.4 fL Medications Current Inpatient Medications Medications (Trade) Dose Ordered Sig/Sofya Route Start Time Stop Time Status Last Admin Dose Admin Lactated Ringer's 1,000 ml @ 999 mls/hr Q1H1M PRN IV 06/11/17 03:51 07/11/17 03:50 06/11/17 04:26 999 MLS/HR Oxytocin (Pitocin IV) 30 units UD PRN IV 06/11/17 08:45 07/11/17 08:44 Benzocaine (Dermoplast Aero Spr) 1 appln PRN PRN EXT 06/11/17 08:45 07/11/17 08:44 06/11/17 11:17 1 APPLN Cocaine HCl (Supercream 0.870% Cr) BID PRN EXT 06/11/17 08:45 06/25/17 08:44 06/11/17 15:30 15 GM Hydrocortisone Acetate (Anusol Hc Supp) 25 mg BID PRN MO 06/11/17 08:45 07/11/17 08:44 Lanolin (Lanolin Oint) PRN PRN EXT 06/11/17 08:45 07/11/17 08:44 Prenat Multivit/ [place]vel/Iron/Folic Ac ( Vitamin Tab) 1 tab DAILY PO 06/12/17 08:00 07/12/17 07:59 06/12/17 08:09 1 TAB Ibuprofen (Motrin Tab) 600 mg Q4H PRN PO 06/11/17 08:45 07/11/17 08:44 06/11/17 20:25 600 MG Acetaminophen (Tylenol Tab) 650 mg Q6H PRN PO 06/11/17 08:45 07/11/17 08:44 Acetaminophen/ Codeine Phosphate (Tylenol w/ Codeine #3 Tab) 1 tab Q4H PRN PO 06/11/17 08:45 07/11/17 08:44 Acetaminophen/ Codeine Phosphate (Tylenol w/ Codeine #3 Tab) 2 tab Q4H PRN PO 06/11/17 08:45 07/11/17 08:44 Bisacodyl (Dulcolax Supp) 10 mg DAILY PRN MO 06/13/17 07:00 Docusate Sodium (coLACE CAP) 100 mg BID PO 06/11/17 20:00 07/11/17 19:59 06/12/17 08:09 100 MG Assessment and Plan Problem List Medical Problems: (1) Ankle pain Status: Acute (2) Conjunctivitis Status: Acute (3) Fall Status: Acute (4) Lumbar contusion Status: Acute (5) Nausea, vomiting, and diarrhea Status: Acute (6) SOB (shortness of breath) Status: Acute (7) Tachycardia Status: Acute Post- Day#: 2 Continue Routine Care: 26 yo F PPD 2 s/p Routine care Encourage ambulation, breast feeding Pain control with Rx prn Discharge instructions reviewed Resident Physician Supervision Note: I interviewed and examined the patient. Discussed with Dr. Rodriguez and agree with findings and plan as documented in the note. Any exceptions or clarifications are listed here: D/C instructions given and reviewed with patient. F/U in 6 weeks Documented By: Reynaldo Leslie Resident Tracking Resident Involvement: Resident Care Provided Care Provided: OB Delivery
[2017-06-13] MEDS: DOCUSATE SODIUM 100 MG CAP PO SCH (08:18)
[2017-06-13] MEDS: PRENATAL VITAMIN TAB PO SCH (08:18)
[2017-06-13 08:20] VITALS: BP 113/83; PULSE 73; TEMP 36.9; O2SAT 0; O2SAT 97
[2017-06-13 10:39] VITALS: BP_DIAS 83; PULSE 73; TEMP 36.9
== END 2017-06-13 14:03 | disposition home or self-care (01) | DRG 775 ==
LOC: C.OPB 03:16 → C.LD 03:17 → C.OPB 03:58 → C.OBG 11:39
PROVIDERS: ADMIT Obstetrics & Gynecology; ATTEND Obstetrics & Gynecology
DX: O99.824 Streptococcus B carrier state complicating childbirth (principal); O70.0 First degree perineal laceration during delivery; O99.02 Anemia complicating childbirth; D64.9 Anemia, unspecified; O99.214 Obesity complicating childbirth; E66.9 Obesity, unspecified; Z68.38 Body mass index [BMI] 38.0-38.9, adult; Z37.0 Single live birth; Z3A.38 38 weeks gestation of pregnancy; Z87.891 Personal history of nicotine dependence

== ENCOUNTER → 2017-08-27 | Day surgery (SDC) | payer OTHER ==
[2017-07-31 15:18] VITALS: Ht 157.5 cm; Wt 91.4 kg
[~2017-08-27] VITALS: Ht 157.5 cm; Wt 91.4 kg
[~2017-08-27] MED LIST changes: +ATROPINE SULFATE 0.1 MG/ML 5ML SYR IV PRN; +BUPIVACAINE 0.5 % 5 MG/1 ML PF 10ML VIAL ONE; +DEXAMETHASONE SOD INJ 4 MG/ML VIAL ONE; +EpHEDrine SULFATE INJ 50 MG/ML AMP IV PRN; +FENTANYL CITRATE INJ 50 MCG/1 ML 2 ML VIAL IV PRN; +FENTANYL CITRATE INJ 50 MCG/1 ML 2 ML VIAL ONE; +GLYCOPYRROLATE INJ 0.2 MG/ML VIAL ONE; +HYDROmorphone INJ 1 MG/ML SYR IV PRN; +IBUPROFEN 600 MG TAB PO PRN; +KETOROLAC TROMETHAMINE 30 MG/ML VIAL IV. PRN; +KETOROLAC TROMETHAMINE 30 MG/ML VIAL ONE; +LACTATED RINGER'S 1000ML 1,000 ML IV SCH; +LIDOCAINE HCL 2% 2 ML VIAL (20MG/ML) ONE; +MIDAZOLAM HCL 1 MG/ML 2ML VIAL ONE; +MTR600X PO; +ONDANSETRON INJ 2 MG/ML 2 ML VIAL IV PRN; +ONDANSETRON INJ 2 MG/ML 2 ML VIAL ONE; +OXYC-57 PO; +OXYCODONE/ACETAMINOPHEN 5-325 TAB PO PRN; +PHENYLEPHRINE 100MCG/ML 5ML SYR IV PRN; +PROMETHAZINE HCL INJ 12.5 MG in SODIUM CHLORIDE 0.9% 50ML 50 ML IV PRN; +PROMETHAZINE HCL INJ 25 MG in SODIUM CHLORIDE 0.9% 50ML 50 ML IV PRN; +PROPOFOL IV EMULSION 10 MG/ML 20 ML VIAL ONE; +ROCURONIUM BROMIDE 10 MG/ML 5 ML VIAL ONE; +SODIUM CHLORIDE 0.9% 1000ML 1,000 ML IV SCH; +SUCCINYLCHOLINE CHLORIDE 20 MG/ML 10 ML VIAL IV ONE
--- NOTE | 2017-08-27 07:25 | History & Physical Bridge - [place] ---
H&P Re-Evaluation Bridge Note: I have examined the patient, reviewed the History & Physical and in the interval since the performance of the History & Physical I have noted the following changes of clinical significance: No changes noted
--- NOTE | 2017-08-27 07:44 | Discharge Instructions ---
Discharge Instructions Date of Service August 27, 2017. Admission Reason for Admission: Request For Sterilization Discharge Discharge Diagnosis / Problem: sterilization Discharge Goals Goal(s): Routine recovery after surgery Activity Recommendations Activity Limitations: per Instructions/Follow-up section . Instructions / Follow-Up Instructions / Follow-Up ACTIVITY RECOMMENDATIONS: * Rest the first 2-3 days. You should be back to your normal activity levels by day 3. * No heavy lifting for 2 weeks. * No intercourse, tampons or douching for 1-2 weeks. * You may shower the next day. * Do not drive anytime that you are taking narcotic pain medicines. RETURN TO SCHOOL/WORK: * May return to school or work after 2-3 days. DIET: Nausea may occur in the immediate post-operative period. If so, take clear liquids such as tea, bouillon, apple juice until all nausea has subsided, then resume usual diet. MEDICATIONS: Resume previous medications unless instructed otherwise by your surgeon. Ibuprofen 200mg 2-3 tablets every 4-6 hours as needed -- OR -- Aleve 2 tablets every 8-12 hours as needed for post-operative discomfort Medications are over the counter. Tylenol may be used if above medications are contraindicated or not preferred. Medication should be taken with food or milk. Do not take on an empty stomach. SPECIAL CARE INSTRUCTIONS: * Check temperature twice daily for one week. report any elevation over 101 degrees. * You may experience some vagina spotting and/or bleeding. This is normal for 1 -2 weeks and should not be heavier than a normal period. If it is unusual in amount, call your physician. * Post-operative discomfort may consist of a sore throat, a "bloated" feeling and pain in the shoulders. these are normal symptoms, which usually only last for 2-3 days. * Remove band-aids tomorrow and shower. There is no need to replace band-aids unless there is drainage or discomfort. FOLLOW UP VISIT: Call your doctor's office for a post-operative 2 week visit if not already scheduled. Current Hospital Diet Patient's current hospital diet: Discharge Diet Recommended Diet: Regular Diet Pending Studies Studies pending at discharge: no Medical Emergencies . Who to Call and When: Medical Emergencies: If at any time you feel your situation is an emergency, please call 911 immediately. . Non-Emergent Contact Non-Emergency issues call your: [employer] . . "Provider Documentation" section prepared by Uri Reagan. .
--- NOTE | 2017-08-27 08:28 | [facility] Post Operative Brief Note ---
Immediate Operative Summary Operative Date August 27, 2017. Pre-Operative Diagnosis Patient request sterilization Post-Operative Diagnosis Same as pre-op Procedure(s) Performed Laparoscopic Tubal Sterilization Surgeon Manager Of Tax Surgeon(s) None Estimated Blood Loss 5ML Findings Consistent with Post-Op Diagnosis Specimens None Drains None Anesthesia Type General Complication(s) none Disposition Accompanied Pt To Recover: no
--- NOTE | 2017-08-27 09:28 | OPERATIVE REPORT ---
DATE OF OPERATION: 08/27/2017 PREOPERATIVE DIAGNOSIS: Request permanent sterilization. POSTOPERATIVE DIAGNOSIS: Request permanent sterilization. PROCEDURE: Laparoscopic tubal sterilization with bipolar Kleppinger coagulation. SURGEON: Uri Reagan MD ASSISTANT TEACHER PRIMARY: None. ESTIMATED BLOOD LOSS: 5 mL. FINDINGS: Normal pelvic anatomy. SPECIMENS: None. DRAINS: None. ANESTHETIC: General. COMPLICATIONS: None. DISPOSITION: Recovery room. The patient was given general anesthetic, prepped and draped in dorsal lithotomy position in [facility]. Bladder drained. Uterine manipulating device attached to the cervix, attached to an Allis clamp. Gloves changed and a subumbilical vertical incision was made with scalpel. Using direct cutdown technique, we cut down through subcutaneous fat to the fascia, splitting the rectus muscles and entering the peritoneal cavity without difficulty. Blunt-tipped Thi trocar placed. Balloon inflated to stabilize the port. CO2 gas used to insufflate. FINDINGS: Upper abdomen normal. No sign of visceral organ injury. Deep Trendelenburg position then revealed a normal pelvis tubes, ovaries, and uterus. Using the operative laparoscope and the Kleppinger, we coagulated first the right fallopian tube and then the left. Both tubes were identified by identifying the fimbriated ends first and then we coagulated for full thickness coagulation for at least 4 separate locations on each tube. Care was taken to avoid surrounding organs to avoid damage. At the end of the procedure, pictures taken for documentation. Instruments removed. Gas allowed to escape. Port removed. Incisions injected with 0.5% Marcaine. Fascia closed with UR-[id number] Vicryl, several [id number] subcutaneous fat irrigated and closed with a 0 Vicryl and then 4-0 subcuticular Monocryl and Dermabond. Instruments removed from the cervix and vagina. Sponge and instrument counts correct. I attest to the content of the Intraoperative Record and any orders documented therein. Any exception s are noted below.
[2017-08-27 10:05] VITALS: TEMP 36.4
[2017-08-27 10:31] VITALS: BP 112/75; PULSE 71; O2SAT 98
--- NOTE | 2017-08-27 10:35 | Anesthesia Progress Nt - [facility] ---
Anesthesia Post Op Note Date & Time August 27, 2017 at 10:35 Vital Signs Pain Intensity: 0 Vital Signs Past 12 Hours Date Time Temp Pulse Resp B/P (MAP) Pulse Ox O2 Delivery O2 Flow Rate FiO2 08/27/17 10:31 71 16 112/75 (87) 98 Room Air 08/27/17 10:05 36.4 83 16 110/73 (85) 97 Room Air 08/27/17 09:52 36.4 86 16 117/78 97 Room Air 08/27/17 09:47 91 9 08/27/17 09:47 91 9 97 08/27/17 09:46 117/78 08/27/17 09:42 91 15 100 08/27/17 09:42 90 15 08/27/17 09:41 122/80 08/27/17 09:37 72 14 08/27/17 09:37 72 14 100 08/27/17 09:36 123/78 08/27/17 09:32 71 14 08/27/17 09:32 72 14 100 08/27/17 09:31 115/77 08/27/17 09:27 75 15 99 08/27/17 09:27 75 15 08/27/17 09:26 120/78 08/27/17 09:22 78 17 08/27/17 09:22 77 17 100 08/27/17 09:21 119/77 08/27/17 09:17 88 22 08/27/17 09:17 83 22 100 08/27/17 09:16 112/72 08/27/17 09:12 86 17 08/27/17 09:12 85 17 100 08/27/17 09:11 115/74 08/27/17 09:07 89 18 99 08/27/17 09:07 88 18 08/27/17 09:06 108/77 08/27/17 09:02 92 22 08/27/17 09:02 90 22 100 08/27/17 09:01 99/74 08/27/17 08:57 101 13 100 08/27/17 08:57 101 13 08/27/17 08:56 103/74 08/27/17 08:52 95 21 99 08/27/17 08:52 95 21 08/27/17 08:51 107/71 08/27/17 08:47 98 24 99 08/27/17 08:47 99 24 08/27/17 08:46 100/66 08/27/17 08:42 99 25 08/27/17 08:42 99 25 99 08/27/17 08:41 114/62 08/27/17 08:39 100 24 98 08/27/17 08:39 100 24 08/27/17 08:36 99/61 08/27/17 08:35 107/67 08/27/17 08:34 101 96 08/27/17 08:34 36.6 101 16 107/67 95 Mask 6 08/27/17 08:34 101 08/27/17 06:35 36.5 70 16 107/71 (83) 97 Room Air Notes Mental Status: alert / awake / arousable, participated in evaluation Pt Amnestic to Procedure: Yes Nausea / Vomiting: adequately controlled Pain: adequately controlled Airway Patency, RR, SpO2: stable & adequate BP & HR: stable & adequate Hydration State: stable & adequate Anesthetic Complications: no major complications apparent
== END | disposition home or self-care (01) ==
LOC: X.SURG 06:22
PROVIDERS: ATTEND Obstetrics & Gynecology
DX: Z30.2 Encounter for sterilization (principal); E66.9 Obesity, unspecified; Z82.5 Family history of asthma and other chronic lower respiratory diseases; Z82.49 Family history of ischemic heart disease and other diseases of the circulatory system; Z84.1 Family history of disorders of kidney and ureter; Z87.891 Personal history of nicotine dependence